=== PATIENT | female | born 1970 | race Caucasian/White ===

== ENCOUNTER 2017-07-07 17:54 | Emergency (ER) | payer MEDICAID ==
[2017-07-07 18:09] LABS: BASOPHILS 0.2 % (0-2); EOSINOPHILS 2.3 % (0-7); HEMATOCRIT 36.2 % (36.0-48.0); HEMOGLOBIN 11.6 g/dL (12-16); IMMATURE GRANULOCYTES 1.2 % (0-5); LYMPHOCYTES 39.3 % (15-50); MCH 26.8 pg (26.0-34.0); MCV 83.6 fL (80.0-100.0); MONOCYTES 5.9 % (2-11); NEUTROPHILS 51.1 % (40-80); PLATELET COUNT 159 10x3/uL (130-400); RBC 4.33 10x6/uL (4.00-5.40); RDW 13.7 % (11.5-14.5)
[2017-07-07 18:20] LABS: ALBUMIN 3.4 g/dL (3.4-5.0); ALKALINE PHOSPHATASE 94 U/L (46-116); ALT (SGPT) 17 U/L (10-68); BILIRUBIN - TOTAL 0.17 mg/dL (0.2-1.3); CALC OSMOLALITY 281 mosm/kg (275-300); CALCIUM 9.3 mg/dL (8.5-10.1); CARBON DIOXIDE 28.2 mmol/L (21.0-32.0); CHLORIDE - SERUM 103 mmol/L (98-107); CREATININE - SERUM 1.4 mg/dL (0.6-1.3); GLUCOSE 132 mg/dL (74-106); POTASSIUM - SERUM 3.5 mmol/L (3.5-5.1); PROTEIN - SERUM 7.5 g/dL (6.4-8.2); SODIUM 140 mmol/L (136-145); UREA NITROGEN 15 mg/dL (7-18); eGFR NON AFRICAN AMERICAN 42 mL/min (90-120)
[2017-07-07 18:41] LABS: CREATINE KINASE 286 UL (21-215); PRO BNP 78 pg/mL (0-125)
[2017-07-07 19:06] LABS: APTT 29.1 SECONDS (22.8-39.4); INR 0.96 (0.85-1.17); PROTIME 12.6 SECONDS (11.6-15.0)
[2017-07-07 19:14] LABS: D-DIMER-QUANTITATIVE 0.28 ug/mLFEU (0.20-0.54)
[2017-07-07 19:16] LABS: APPEARANCE CLEAR (CLEAR); BILIRUBIN NEGATIVE (NEGATIVE); COLOR STRAW (YELLOW); GLUCOSE NEGATIVE (NEGATIVE); KETONE NEGATIVE (NEGATIVE); NITRITE NEGATIVE (NEGATIVE); PH 7.5 (5.0-6.0); PROTEIN NEGATIVE (NEGATIVE); SPECIFIC GRAVITY 1.005 (1.005-1.020); UROBILINOGEN NORMAL (NORMAL)
[2017-07-07 19:25] LABS: UDS - AMPHET NEGATIVE QUAL (NEGATIVE); UDS - BARB NEGATIVE QUAL (NEGATIVE); UDS - BENZO POSITIVE QUAL (NEGATIVE); UDS - COCAINE NEGATIVE QUAL (NEGATIVE); UDS - OPIATE POSITIVE QUAL (NEGATIVE); UDS - PCP NEGATIVE QUAL (NEGATIVE); UDS - THC NEGATIVE QUAL (NEGATIVE)
[2017-07-07 20:23] LABS: AMYLASE - SERUM 104 U/L (25-115); LIPASE 218 U/L (73-393)
[2017-07-28 04:13] VITALS: BMI 29.4
== END 2017-07-07 21:30 | disposition home or self-care (01) ==
LOC: D.ER 17:54
PROVIDERS: Family Medicine; Nurse Practitioner Family
DX: R06.00 Dyspnea, unspecified (principal); R47.81 Slurred speech

== ENCOUNTER 2017-07-18 22:58 | Emergency (ER) | payer MEDICAID ==
[2017-07-18 23:38] LABS: BASOPHILS 0.3 % (0-2); HEMATOCRIT 38.3 % (36.0-48.0); HEMOGLOBIN 12.1 g/dL (12-16); IMMATURE GRANULOCYTES 1.1 % (0-5); LYMPHOCYTES 36.6 % (15-50); MCH 26.7 pg (26.0-34.0); MCHC 31.6 g/dL (31.0-37.0); MCV 84.4 fL (80.0-100.0); MEAN PLATELET VOLUME 12.6 fL (7.4-10.4); MONOCYTES 5.7 % (2-11); NEUTROPHILS 54.3 % (40-80); PLATELET COUNT 164 10x3/uL (130-400); RBC 4.54 10x6/uL (4.00-5.40); RDW 14.3 % (11.5-14.5); WBC 7.5 10x3/uL (4.8-10.8)
[2017-07-18 23:49] LABS: ALBUMIN 3.6 g/dL (3.4-5.0); ANION GAP 11.5 mmol/L (8-16); BILIRUBIN - TOTAL 0.14 mg/dL (0.2-1.3); CALCIUM 9.5 mg/dL (8.5-10.1); CARBON DIOXIDE 30.8 mmol/L (21.0-32.0); CREATININE - SERUM 1.3 mg/dL (0.6-1.3); POTASSIUM - SERUM 3.3 mmol/L (3.5-5.1); PROTEIN - SERUM 7.7 g/dL (6.4-8.2)
[2017-07-19 00:59] LABS: UDS - AMPHET NEGATIVE QUAL (NEGATIVE); UDS - BARB NEGATIVE QUAL (NEGATIVE); UDS - BENZO POSITIVE QUAL (NEGATIVE); UDS - COCAINE NEGATIVE QUAL (NEGATIVE); UDS - OPIATE NEGATIVE QUAL (NEGATIVE); UDS - PCP NEGATIVE QUAL (NEGATIVE); UDS - THC NEGATIVE QUAL (NEGATIVE)
[2017-07-19 01:01] LABS: APPEARANCE CLEAR (CLEAR); BILIRUBIN NEGATIVE (NEGATIVE); COLOR YELLOW (YELLOW); GLUCOSE NEGATIVE (NEGATIVE); KETONE NEGATIVE (NEGATIVE); NITRITE NEGATIVE (NEGATIVE); PROTEIN NEGATIVE (NEGATIVE); UROBILINOGEN NORMAL (NORMAL)
[2017-07-19 01:04] LABS: BACTERIA FEW /hpf (NONE SEEN); EPITHELIAL CELLS 0-5 /hpf (0-5); RED CELLS - URINE 0-5 /hpf (0-5); WHITE CELLS - URINE OCC /hpf (0-5)
[2017-07-19 01:05] LABS: MUCUS >1+ /lpf (NONE SEEN)
[2017-07-28 04:13] VITALS: BMI 29.4
== END 2017-07-19 02:25 | disposition home or self-care (01) ==
LOC: D.ER 22:58
PROVIDERS: Emergency Medicine
DX: E86.0 Dehydration (principal); R55 Syncope and collapse; N39.0 Urinary tract infection, site not specified

== ENCOUNTER 2017-07-24 16:57 | Emergency (ER) | payer MEDICAID ==
[2017-07-24 17:56] LABS: BASOPHILS 0.5 % (0-2); EOSINOPHILS 2.3 % (0-7); HEMATOCRIT 37.6 % (36.0-48.0); HEMOGLOBIN 12.1 g/dL (12-16); IMMATURE GRANULOCYTES 1.1 % (0-5); LYMPHOCYTES 46.4 % (15-50); MCH 26.9 pg (26.0-34.0); MCHC 32.2 g/dL (31.0-37.0); MCV 83.7 fL (80.0-100.0); MONOCYTES 7.1 % (2-11); NEUTROPHILS 42.6 % (40-80); PLATELET COUNT 169 10x3/uL (130-400); RBC 4.49 10x6/uL (4.00-5.40); RDW 14.2 % (11.5-14.5); WBC 8.2 10x3/uL (4.8-10.8)
[2017-07-24 18:09] LABS: ALBUMIN 3.4 g/dL (3.4-5.0); BILIRUBIN - TOTAL 0.15 mg/dL (0.2-1.3); CALCIUM 9.9 mg/dL (8.5-10.1); CREATININE - SERUM 1.1 mg/dL (0.6-1.3); PROTEIN - SERUM 7.5 g/dL (6.4-8.2)
[2017-07-24 19:03] LABS: APPEARANCE CLEAR (CLEAR); BILIRUBIN NEGATIVE (NEGATIVE); COLOR YELLOW (YELLOW); GLUCOSE NEGATIVE (NEGATIVE); KETONE NEGATIVE (NEGATIVE); NITRITE NEGATIVE (NEGATIVE); PROTEIN NEGATIVE (NEGATIVE); UROBILINOGEN NORMAL (NORMAL)
[2017-07-24 19:06] LABS: UDS - AMPHET NEGATIVE QUAL (NEGATIVE); UDS - BARB NEGATIVE QUAL (NEGATIVE); UDS - BENZO POSITIVE QUAL (NEGATIVE); UDS - COCAINE NEGATIVE QUAL (NEGATIVE); UDS - OPIATE NEGATIVE QUAL (NEGATIVE); UDS - PCP NEGATIVE QUAL (NEGATIVE); UDS - THC NEGATIVE QUAL (NEGATIVE)
[2017-07-28 04:13] VITALS: BMI 29.4
== END 2017-07-24 21:11 | disposition home or self-care (01) ==
LOC: D.ER 16:57
PROVIDERS: Emergency Medicine
DX: R41.82 Altered mental status, unspecified (principal); R19.7 Diarrhea, unspecified; F17.200 Nicotine dependence, unspecified, uncomplicated

== ENCOUNTER 2017-07-28 00:29 | Observation (INO) | payer MEDICAID ==
[~2017-07-28] VITALS: Ht 157.5 cm; Wt 78.3 kg
[2017-07-28 01:22] LABS: BASOPHILS 0.3 % (0-2); EOSINOPHILS 1.2 % (0-7); HEMATOCRIT 36.1 % (36.0-48.0); HEMOGLOBIN 11.6 g/dL (12-16); IMMATURE GRANULOCYTES 1.1 % (0-5); LYMPHOCYTES 26.3 % (15-50); MCH 26.7 pg (26.0-34.0); MCHC 32.1 g/dL (31.0-37.0); MONOCYTES 6.6 % (2-11); NEUTROPHILS 64.5 % (40-80); PLATELET COUNT 159 10x3/uL (130-400); RBC 4.35 10x6/uL (4.00-5.40); RDW 14.3 % (11.5-14.5); WBC 6.6 10x3/uL (4.8-10.8)
[2017-07-28 01:30] LABS: APPEARANCE CLEAR (CLEAR); BILIRUBIN NEGATIVE (NEGATIVE); COLOR YELLOW (YELLOW); GLUCOSE NEGATIVE (NEGATIVE); KETONE NEGATIVE (NEGATIVE); NITRITE NEGATIVE (NEGATIVE); PROTEIN NEGATIVE (NEGATIVE); SPECIFIC GRAVITY 1.015 (1.005-1.020); UROBILINOGEN NORMAL (NORMAL)
[2017-07-28 01:58] LABS: ALBUMIN 3.5 g/dL (3.4-5.0); ANION GAP 16.1 mmol/L (8-16); BILIRUBIN - TOTAL 0.14 mg/dL (0.2-1.3); CALCIUM 9.7 mg/dL (8.5-10.1); CARBON DIOXIDE 27.6 mmol/L (21.0-32.0); CREATININE - SERUM 1.3 mg/dL (0.6-1.3); POTASSIUM - SERUM 3.7 mmol/L (3.5-5.1); PROTEIN - SERUM 7.7 g/dL (6.4-8.2)
[2017-07-28 02:22] LABS: TROPONIN-I 0.074 ng/mL (0.000-0.060)
[2017-07-28 04:13] VITALS: BP 90/65; Ht 157.5 cm; Wt 78.3 kg
[2017-07-28] MEDS ORDERED: SYNTHROID50 MCG PO (04:47)
[2017-07-28] MEDS ORDERED: PHENERGAN25 M1 PO (04:48)
[2017-07-28] MEDS ORDERED: DEPAKOTE500 MG PO (04:49)
[2017-07-28] MEDS ORDERED: NICODERM C1 PATCH .3 TRANSDERM (04:49)
[2017-07-28] MEDS ORDERED: OMEPRAZOLE20 M1 PO (04:50)
[2017-07-28] MEDS ORDERED: BUPROPION HCL100 MG PO (04:51)
[2017-07-28] MEDS ORDERED: VALIUM10 MG PO (04:52)
[2017-07-28] MEDS ORDERED: ESTRACE1 MG PO (04:52)
[2017-07-28] MEDS ORDERED: LASIX40 MG PO (04:53)
[2017-07-28] MEDS ORDERED: LOPID600 MG PO (04:53)
[2017-07-28] MEDS ORDERED: PRAVACHOL40 MG PO (04:53)
[2017-07-28] MEDS ORDERED: ACETAMINOPHEN325 MG PO (04:54)
--- NOTE | 2017-07-28 04:55 | NUR ---
PT ARRIVED VIA STRETCHER FROM ER WITH DX ACS AND COPD AT 0329 HRS. PT ANXIOUS AT HTHAT TIME. ADMISSION ASSESSMENT, HISTORY AND HOME MED LIST COMPLETED. SR PER CM HR 98. VSS. IV TO LFA SL. PT STATES HAS BEEN FALLING RECENTLY. PT [place]. NO NEURO DEFICITS NOTED. BED ALARM ON, CALL LIGHT WITHIN REACH.
[2017-07-28] MEDS ORDERED: EPIPEN0.3 MG/0.3 IM (05:21)
[2017-07-28 05:33] LABS: VALPROIC ACID (DEPAKOTE) 22.5 ug/mL (50.0-100.0)
[2017-07-28 05:35] LABS: TROPONIN-I 0.063 ng/mL (0.000-0.060)
--- NOTE | 2017-07-28 06:12 | NUR ---
PT CURRENTLY RESTING WITH EYES CLOSED. RESP EVEN AND REGULAR. TROP TRENDING DOWNWARDS. SR PER CM. NEEDS MET; WILL CONTINUE TO MONITOR.
--- NOTE | 2017-07-28 10:38 | NUR ---
TELEMETRY SR. RESTS IN BED WITH CALL LIGHT IN REACH. WILL CONT. PLAM OF CARE.
[2017-07-28 12:04] VITALS: BP 111/69
--- NOTE | 2017-07-28 14:28 | HP ---
PATIENT: REYES LOVE MEDICAL RECORD: [id number] ACCOUNT: [id number] LOCATION:[address] : [birth year] ADMISSION DATE: 07/28/17 HISTORY AND PHYSICAL EXAMINATION HISTORY OF PRESENT ILLNESS: A 46-year-old female presented to the Emergency Room with numerous complaints, facial pain, leg pain, cough, reported shortness of breath, GI symptoms with history of chronic bowel incontinence, and dysphagia. Unclear cardiac history with report of studies that do not correlate, also psychiatric history. PAST SURGICAL HISTORY: Reported as cholecystectomy, hysterectomy, , and tubal ligation. ALLERGIES: BEE STINGS, SULFA, ASPIRIN. She reports an allergy to atorvastatin, but she list simvastatin as her current medication. REVIEW OF SYSTEMS: GENERAL: No reported change in weight or appetite. HEENT: No present cephalgia, visual changes, tinnitus, epistaxis, or dysphagia. CARDIOVASCULAR: Denies present chest pain. Denies shortness of breath. Did have a cough, shortness of breath on admission to the ER. PULMONARY: Denies hemoptysis. Denies night sweats. GASTROINTESTINAL: Denies hematemesis, hematochezia, or melena. GENITOURINARY: Denies dysuria. MUSCULOSKELETAL: No present complaints. PHYSICAL EXAMINATION: VITAL SIGNS: Temperature 97.7, blood pressure 111/69, heart rate 79, respirations 16, and O2 sats 95%. GENERAL: Alert and oriented, no present distress. HEENT: Head is normocephalic, atraumatic. Eyes, pupils are equally round and reactive. Ears, canals patent. TMs are intact. Nose, nares patent without drainage. Throat, no erythema, no exudates. NECK: Supple. Soft carotid bruits. LUNGS: Clear to auscultation bilaterally. Breathing is nonlabored. HEART: Regular rate and rhythm. No S3, S4. ABDOMEN: Soft, nontender. EXTREMITIES: Present times 4. NEUROLOGIC: No focal deficits at this time. The patient speaks nonstop. She has no apparent shortness of breath. LABORATORY DATA AND DIAGNOSTIC STUDIES: Initial troponin minimally elevated at 0.074. Last troponin was 0.022. Urinalysis show clear, normal UA. CBC: White count 6.6, hemoglobin 11.6, hematocrit 36.1. Chemistry shows sodium of 142, potassium 3.7, chloride 102, bicarbonate 27.6. ProBNP 119. Hip x-rays are normal. Chest x-ray, no acute cardiopulmonary process. EKG, sinus rhythm, rate of 107. ASSESSMENT AND PLAN: Transient elevation in troponin, possible transient ischemic attack. She reports history of strokes, carotid bruit. The patient has risk factors for coagulopathy with her hormone replacement. We will hold this. Echo and carotid ultrasound pending. HISTORY AND PHYSICAL [id number] REYES LOVE TRANSINT:[id number] Voice Confirmation ID: [id number] DOCUMENT ID: [id number] CATRACHO ALEXANDER DO at 1428 CC: [id number] DICTATION DATE: 07/28/17 1339 SIZER MACHINE: 07/28/17 1401 ADM IN [id number] [place] [address]
[2017-07-28 16:12] VITALS: BP 108/65
[2017-07-28 19:00] VITALS: BP 123/73
--- NOTE | 2017-07-28 21:00 | NUR ---
PT CRYING C/E ACID REFLUX. PT HAS NOT HAD ANY PROTONIX TODAY. ORDERED DAILY. INITIAL DOSE PROTONIX GIVEN AT THIS TIME.
--- NOTE | 2017-07-28 22:30 | NUR ---
PT REPORTS NEEDING A NICOTINE PATCH RIGHT NOW. STATES SHE IS HAVING ANXIETY - NICOTINE PATCH ORDERED, FIRST DOSE GIVEN AT THIS TIME. UPON ENTERING ROOM WITH MED, PT STATES SHE IS HAVING AN ALLERGIC REACTION TO THE PROTONIX. I QUESTIONED THE PT REGARDING HER "ALLERGIC REACTION" - SHE HAD STATED EARLIER THAT SHE HAS TAKEN PROTONIUX IN THE PAST. PT REPORTS IN THE PAST THEY ALWAYS GAVE ME BENADRYL WITH IT BECAUSE I HAVE ALLERGIC REACTIONS. ON INSPECTION, PT HAS HAS ONLY REDNESS WHERE SHE HAS SCRATCHED HER SKIN. NO HIVES NOTED. ADULT CHILDREN AT THE BEDSIDE. CALL TO DR ALEXANDER AT THIS TIME. AWAITING RETURN CALL.
--- NOTE | 2017-07-28 22:55 | NUR ---
DR ALEXANDER RETURNS CALL TO THE FLOOR, NEW ORDERS RECEIVED FOR BENADRYL 25 MG PO NOW.
[2017-07-29 00:38] VITALS: BP 122/66
--- NOTE | 2017-07-29 02:06 | NUR ---
PT RESTING SOUNDLY WITHOUT C/O OR DISTRESS NOTED. NO NEEDS VOICED. WILL CONT TO MONITOR.
[2017-07-29 04:24] VITALS: BP 99/57
[2017-07-29 05:39] LABS: BASOPHILS 0.3 % (0-2); EOSINOPHILS 0.7 % (0-7); HEMATOCRIT 33.6 % (36.0-48.0); HEMOGLOBIN 10.6 g/dL (12-16); IMMATURE GRANULOCYTES 2.3 % (0-5); LYMPHOCYTES 27.5 % (15-50); MCH 26.5 pg (26.0-34.0); MCHC 31.5 g/dL (31.0-37.0); MEAN PLATELET VOLUME 12.4 fL (7.4-10.4); MONOCYTES 10.9 % (2-11); NEUTROPHILS 58.3 % (40-80); PLATELET COUNT 166 10x3/uL (130-400); RDW 14.7 % (11.5-14.5)
[2017-07-29 06:08] LABS: CALCIUM 9.3 mg/dL (8.5-10.1); CARBON DIOXIDE 26.9 mmol/L (21.0-32.0); CHLORIDE - SERUM 104 mmol/L (98-107); CREATININE - SERUM 1.3 mg/dL (0.6-1.3); GLUCOSE 110 mg/dL (74-106); SODIUM 140 mmol/L (136-145); TROPONIN-I < 0.017 ng/mL (0.000-0.060); eGFR NON AFRICAN AMERICAN 46 mL/min (90-120)
[2017-07-29 06:10] LABS: INR 0.91 (0.85-1.17)
[2017-07-29 06:12] LABS: CALC OSMOLALITY 281 mosm/kg (275-300); POTASSIUM - SERUM 4.3 mmol/L (3.5-5.1); UREA NITROGEN 18 mg/dL (7-18)
--- NOTE | 2017-07-29 07:30 | NUR ---
RECEIVED PT IN BED EYES CLOSED RESP UNLABORED NAD NOTED
[2017-07-29 08:48] VITALS: BP 102/56
--- NOTE | 2017-07-29 12:28 | NUR ---
RECEIVED PT BACK FROM STRESS TEST VIA W/C IN STABLE CONDITION
[2017-07-29 16:50] VITALS: BP 105/58
[2017-07-29 22:46] VITALS: BP 102/63
--- NOTE | 2017-07-30 01:55 | NUR ---
PT RESTING WELL WITHOUT C/O OR DISTRESS NOTED. NO NEEDS VOICED. WILL CONT TO MONITOR.
[2017-07-30 05:05] VITALS: BP 104/69; BP 115/68
--- NOTE | 2017-07-30 07:32 | NUR ---
RECEIVED PT IN BED EYES CLOSED RESP UNLABORED WEARING CPAP NAD NOTED
[2017-07-30 08:34] VITALS: BP 94/57
[2017-07-30 12:38] VITALS: BP 105/62
--- NOTE | 2017-07-30 14:20 | NUR ---
REVIEWED DISCHARGE PAPERS WITH PT STATE UNDERSTANDING COPY GIVEN SALINE LOCK DCD TO LFA WITH IV CATHETER INTACT SITE FREE OF REDNESS OR EDEMA PT DISCHARGED HOME IN STABLE CONDITION WITH ALL PERSONAL BELONGINGS
--- NOTE | 2017-07-31 08:05 | DS ---
PATIENT:REYES LOVE :66 MEDICAL RECORD: [id number] DISCHARGE SUMMARY ADMISSION DATE: 07/28/17 DISCHARGE DATE: 07/30/17 DATE OF ADMISSION: 07/28/2017 DATE OF DISCHARGE: 07/30/2017 ADMISSION DIAGNOSES: Atypical chest pain, shortness of breath, multiple diffuse complaints, history of bipolar/depression. DISCHARGE DIAGNOSES: Transient elevation of troponin, no corollary findings, no additional cardiac enzyme elevation. Depression, bipolar. CONSULTS: Dr. Carrasquillo, cardiology. PROCEDURES: Negative stress test. Echocardiogram, no significant findings. Carotid ultrasound, mild vascular disease, no occlusion, no flow limitations. HOSPITAL COURSE: The patient had an uneventful hospital course, was admitted with diffuse vague complaints, was found to have transient elevation in troponin only. Enzymes, the troponin resolved completely. The patient is asymptomatic, had been cleared for discharge by cardiology, had a significant evaluation, is discharged to home in stable improved condition. VITAL SIGNS ON DISCHARGE: Temperature 97.5, blood pressure 115/68, heart rate 69, respirations 20, O2 saturations 95%. GENERAL: The patient is alert, oriented, no distress. HEART: Regular rate and rhythm. LUNGS: Clear. ABDOMEN: Soft. EXTREMITIES: Present times 4, no edema. NEUROLOGIC: Intact. DISCHARGE INSTRUCTIONS: The patient will follow up with her primary care physician, Dr. Schuler. Return to the ER with worsening symptoms. TRANSINT:[id number] Voice Confirmation ID: [id number] DOCUMENT ID: [id number] CATRACHO ALEXANDER DO at 0805 CC: [id number] DICTATION DATE: 07/30/17 0803 MOBILE UI DEVELOPER: 07/30/17 1209 DIS IN 07/30/17 [id number] [place] [address]
--- NOTE | 2017-08-05 09:15 | ST ---
PATIENT:REYES LOVE MEDICAL RECORD: [id number] SEX: F LOCATION:[facility] D211 ORDER #: ADMISSION DATE: 07/28/17 AGE OF PATIENT: 46 REFERRING PHYSICIAN: INTERPRETING PHYSICIAN: BRUCE CADENA MD DATE OF SERVICE: 07/29/2017 PROCEDURE: Standard Lexiscan-induced cardiac nuclear stress test. DATE OF ASSESSMENT: 07/29/2017 REFERRING PHYSICIAN: Mk Queen DO PROCEDURE IN DETAIL: The patient was brought to the nuclear department, placed in supine position on the nuclear table where he underwent a standard Lexiscan infusion without any sequelae or complications. The patient tolerated the procedure well. She did have mild shortness of breath during the procedure, but otherwise the procedure was completed. Gated imaging and SPECT imaging was obtained. We utilized 11.6 mCi of sestamibi at rest and 31.0 mCi of sestamibi at stress, infused through a patent intravenous line. The patient's heart rate appropriately increased from baseline of 90-100 to a peak of 114. The patient's gated ejection fraction was normal at 62%. There were no wall motion abnormalities demonstrated. The SPECT imaging showed good homogeneous uptake both in rest and stress. There were no areas of ischemia or infarction demonstrated. CONCLUSION: This is a negative Lexiscan directed nuclear stress test without evidence of ischemia or infarction with preserved LV systolic function, ejection fraction 62%. TRANSINT:[id number] Voice Confirmation ID: [id number] DOCUMENT ID: [id number] BRUCE CADENA MD at 0915 CC: [id number] DICTATION DATE: 07/30/17720 TRAINING CONSULTANT: 07/30/17 1127 DIS IN 07/30/[address] [facility] [address] [place] [address]
--- NOTE | 2017-08-27 08:55 | EC ---
PATIENT:REYES LOVE DATE OF SERVICE: 07/28/17 SEX: F MEDICAL RECORD: [id number] DATE OF : 66 LOCATION:D.M2 D.211 AGE OF PATIENT: 46 ADMISSION DATE: 07/28/17 REFERRING PHYSICIAN: INTERPRETING PHYSICIAN: BRUCE CADENA MD ECHOCARDIOGRAM REPORT ECHO CHARGES 4 ECHO COMPLETE CLINICAL DIAGNOSIS: NON-Q NC ECHOCARDIOGRAPHIC MEASUREMENTS (adult normal given) AC root (d.<3.7cm) 2.6 cm LV Septum d (<1.2 cm> 1.2 cm Valve Excursion 1.5 cm LV Septum (systole) 1.7 cm Left Atria (s.<4.0cm> 3.2 cm LVPW d(<1.2cm) 1.2 cm RV (d.<2.3cm) 2.4 cm LVPW (sytole) 1.6 cm LV diastole(<5.6CM) 4.4 cm MV E-F(>70mm/sec) cm LV systole 2.8 cm LVOT Diameter 1.7 cm MV exc.(>10mm) cm Est.ejection fraction (50-75%) % Pericardial Effusion N DOPPLER: LVIT cm/sec A 115 cm/sec E 93.0 cm/sec LA cm/sec RVSP 25.0 mmHg LVOT 82.0 cm/sec AOP1/2T m/s Asc. Ao 218 cm/sec RVOT 69.0 cm/sec RA cm/sec PA 120 cm/sec AV Gradient Peak 19.0 mmHg AV Mean 12.0 mmHg AV Area 0.8 cm MV Gradient Peak 5.0 mmHg MV Mean 2.0 mmHg MV Area cm COMMENTS: Data Architect: Ha FERROOE Shrimp Peeling Machine Operator: 4 Dr. Cadena TAPE# PACS DATE OF SERVICE: 07/28/2017 PROCEDURE: Transthoracic echocardiogram. FINDINGS: 1. Left ventricle was difficult to see in its entirety; however, the overall function that was visualized well appears to be normal. There are no obvious regional wall motion abnormalities. The ejection fraction is 55% to 60%. There is evidence of left ventricular hypertrophy and the inflow characteristics are consistent with diastolic dysfunction. ECHOCARDIOGRAM REPORT [id number] REYES LOVE 2. The aortic valve is mildly thickened. There is no evidence of aortic stenosis. There is evidence of mild aortic sclerosis. There is no significant elevation in the pressure gradient across the aortic valve. 3. Mitral valve has trace mitral regurgitation. 4. Tricuspid valve has trace tricuspid regurgitation. 5. The pericardium is normal. 6. Pulmonic valve has trace pulmonic insufficiency. 7. The right atrium is normal size, normal function. 8. The right ventricle is normal size, normal function. CONCLUSIONS: The patient has evidence of aortic sclerosis without stenosis. The patient has evidence of mild hypertensive heart disease. TRANSINT:[id number] Voice Confirmation ID: [id number] DOCUMENT ID: [id number] 08/07/2017 Edited to correct date of service, dmm. BRUCE CADENA MD at 0855 CC: [id number] DICTATION DATE: 07/29/17 1200 TANK HOOP BENDER: 07/29/17 1209 DIS IN 07/30/17 [id number] [place] [address]
== END 2017-07-30 14:10 | disposition home or self-care (01) ==
LOC: D.ER 00:29 → OBSVTIME 02:45 → D.M2 02:45
PROVIDERS: Family Medicine; ADMIT Family Medicine
DX: R07.89 Other chest pain (principal); R79.89 Other specified abnormal findings of blood chemistry; J40 Bronchitis, not specified as acute or chronic; F31.30 Bipolar disorder, current episode depressed, mild or moderate severity, unspecified; I50.9 Heart failure, unspecified; J44.9 Chronic obstructive pulmonary disease, unspecified; R09.89 Other specified symptoms and signs involving the circulatory and respiratory systems; Z86.73 Personal history of transient ischemic attack (TIA), and cerebral infarction without residual deficits

== ENCOUNTER 2017-08-09 18:30 | Emergency (ER) | payer MEDICAID ==
[2017-07-28 04:13] VITALS: BMI 29.4
[~2017-08-09 18:30] MED LIST: ACETAMINOPHEN325 MG PO; BUPROPION HCL100 MG PO; DEPAKOTE500 MG PO; EPIPEN0.3 MG/0.3 IM; ESTRACE1 MG PO; LASIX40 MG PO; LOPID600 MG PO; NICODERM C1 PATCH .3 TRANSDERM; OMEPRAZOLE20 M1 PO; PHENERGAN25 M1 PO; PRAVACHOL40 MG PO; SYNTHROID50 MCG PO; VALIUM10 MG PO
[2017-08-09 19:08] LABS: BASOPHILS 0.2 % (0-2); EOSINOPHILS 1.5 % (0-7); HEMATOCRIT 39.1 % (36.0-48.0); HEMOGLOBIN 12.7 g/dL (12-16); IMMATURE GRANULOCYTES 2.1 % (0-5); LYMPHOCYTES 47.5 % (15-50); MCH 27.3 pg (26.0-34.0); MCHC 32.5 g/dL (31.0-37.0); MCV 83.9 fL (80.0-100.0); MONOCYTES 6.7 % (2-11); RBC 4.66 10x6/uL (4.00-5.40); RDW 15.2 % (11.5-14.5); WBC 8.5 10x3/uL (4.8-10.8)
[2017-08-09 19:09] LABS: PLATELET COUNT 221 10x3/uL (130-400)
[2017-08-09 19:35] LABS: ALBUMIN 3.5 g/dL (3.4-5.0); ALKALINE PHOSPHATASE 87 U/L (46-116); ALT (SGPT) 10 U/L (10-68); BILIRUBIN - TOTAL 0.21 mg/dL (0.2-1.3); CALC OSMOLALITY 278 mosm/kg (275-300); CALCIUM 8.8 mg/dL (8.5-10.1); CARBON DIOXIDE 26.7 mmol/L (21.0-32.0); CHLORIDE - SERUM 101 mmol/L (98-107); CKMB 0.1 U/L (0.0-3.6); CREATINE KINASE 44 UL (21-215); CREATININE - SERUM 1.8 mg/dL (0.6-1.3); GLUCOSE 138 mg/dL (74-106); POTASSIUM - SERUM 3.5 mmol/L (3.5-5.1); PRO BNP 33 pg/mL (0-125); PROTEIN - SERUM 8.4 g/dL (6.4-8.2); SODIUM 138 mmol/L (136-145); UREA NITROGEN 16 mg/dL (7-18); eGFR NON AFRICAN AMERICAN 32 mL/min (90-120)
[2017-08-09 19:37] LABS: TROPONIN-I < 0.017 ng/mL (0.000-0.060)
[2017-08-09 20:24] LABS: APPEARANCE CLEAR (CLEAR); BACTERIA FEW /hpf (NONE SEEN); BILIRUBIN NEGATIVE (NEGATIVE); COLOR DK YELLOW (YELLOW); GLUCOSE NEGATIVE (NEGATIVE); KETONE NEGATIVE (NEGATIVE); MUCUS <1+ /lpf (NONE SEEN); NITRITE NEGATIVE (NEGATIVE); PROTEIN NEGATIVE (NEGATIVE); RED CELLS - URINE 0-5 /hpf (0-5); UROBILINOGEN NORMAL (NORMAL); WHITE CELLS - URINE 0-5 /hpf (0-5)
== END 2017-08-09 23:04 | disposition home or self-care (01) ==
LOC: D.ER 18:30
PROVIDERS: Family Medicine
DX: E86.0 Dehydration (principal); I95.9 Hypotension, unspecified; J44.9 Chronic obstructive pulmonary disease, unspecified; F17.200 Nicotine dependence, unspecified, uncomplicated

== ENCOUNTER 2017-10-25 22:10 | Emergency (ER) | payer MEDICAID ==
[2017-07-28 04:13] VITALS: BMI 29.4
[2017-10-25 22:46] LABS: BASOPHILS 0.3 % (0-2); EOSINOPHILS 1.1 % (0-7); HEMATOCRIT 33.9 % (36.0-48.0); HEMOGLOBIN 11.3 g/dL (12-16); IMMATURE GRANULOCYTES 1.9 % (0-5); LYMPHOCYTES 58.1 % (15-50); MCH 27.8 pg (26.0-34.0); MCHC 33.3 g/dL (31.0-37.0); MCV 83.3 fL (80.0-100.0); MEAN PLATELET VOLUME 10.8 fL (7.4-10.4); MONOCYTES 5.7 % (2-11); NEUTROPHILS 32.9 % (40-80); RBC 4.07 10x6/uL (4.00-5.40); RDW 14.7 % (11.5-14.5)
[2017-10-25 22:49] LABS: PLATELET COUNT 154 10x3/uL (130-400)
[2017-10-25 23:10] LABS: ALBUMIN 3.6 g/dL (3.4-5.0); ANION GAP 14.7 mmol/L (8-16); BILIRUBIN - TOTAL 0.29 mg/dL (0.2-1.3); CALCIUM 9.7 mg/dL (8.5-10.1); CREATININE - SERUM 1.5 mg/dL (0.6-1.3); POTASSIUM - SERUM 3.7 mmol/L (3.5-5.1)
== END 2017-10-26 01:43 | disposition home or self-care (01) ==
LOC: D.ER 22:10
PROVIDERS: Family Medicine
DX: B34.9 Viral infection, unspecified (principal); F17.200 Nicotine dependence, unspecified, uncomplicated; I50.9 Heart failure, unspecified; J44.9 Chronic obstructive pulmonary disease, unspecified